=== PATIENT | male | born 1950 | race Caucasian/White ===

== ENCOUNTER 2020-01-03 10:24 | Inpatient (IN) | payer MEDICARE ==
[2020-01-03 15:00] VITALS: BP 141/84
[2020-01-03] MEDS ORDERED: MIRALAX *UNIT DOSE* 17GM PACKET PO PRN (15:15)
[2020-01-03] MEDS ORDERED: ACETAMINOPHEN TAB 650MG DOSE (2X325MG) PO PRN (15:15)
[2020-01-03] MEDS ORDERED: FLUO10CA16 PO (16:25)
[2020-01-03] MEDS ORDERED: METO1TAB87 PO (16:25)
[2020-01-03] MEDS ORDERED: DOXA1TAB42 PO (16:25)
[2020-01-03] MEDS ORDERED: ATOR80TA59 PO (16:25)
[2020-01-03] MEDS ORDERED: MELA5CAP2 PO (16:25)
[2020-01-03] MEDS ORDERED: PANT40TA29 PO (16:25)
[2020-01-03] MEDS ORDERED: ELIQ5TAB PO (16:25)
[2020-01-03] MEDS ORDERED: AMLO1TAB24 PO (16:25)
[2020-01-03] MEDS ORDERED: LIDO1PAD TOP (16:25)
[2020-01-03] MEDS ORDERED: ASPI81CH33 PO (16:25)
--- NOTE | 2020-01-03 17:42 | HPEPDOC ---
Alteration Specialist Note DATE OF ADMISSION: 01.03.2020 DATE OF SERVICE: 01.03.2020 TIME OF ADMISSION: Please refer to physician's admission order. SOURCE OF ADMISSION INFORMATION: Patient, medical record ADMITTING DIAGNOSES: CVA HTN Afib Myofascial pain left shoulder girdle Dysarthria Dysphagia CHIEF COMPLAINT: Left lachelle-plegia. Left shoulder pain Emotional lability . HISTORY OF PRESENT ILLNESS: This is a 69-year-old hypertensive gentleman with history of atrial fibrillation was treated on Xarelto and had prior TIAs who presented to the hospital with an acute right-sided ischemic stroke 12/29/2019. Workup including carotid duplex to Mr. to complete occlusion of the right internal carotid artery and left febrile arteries. The patient had new interval strokes on repeat MRI involving the right centrum semiovale, frontal lobe and to a lesser extent parietal lobe as well as initial foci of acute infarcts in the right frontoparietal medial temporal occipital lobes. Basal ganglia and deep white matter, he was not felt to be a surgical candidate. Patient had a PICC line placed for venous access. Presentation. Apparently fluctuating progression in functional abilities as there were extension of the strokes, stable on transfer. REVIEW OF SYSTEMS: The following is a completed review of systems and has been reviewed. Review of systems otherwise unremarkable. PAIN: Patient self reports no pain. EYES: No recent vision changes. EARS, NOSE, & THROAT: No throat pain, or dysphagia, or rhinorrhea. CARDIOVASCULAR: Denies chest pain or palpitations. PULMONARY: Denies shortness of breath. GASTROINTESTINAL: Denies constipation/diarrhea. GENITOURINARY: BPH MUSCULOSKELETAL: History prior cervical spine surgery, stable NEUROLOGICAL:. Current L lachelle HEMATOLOGICAL: negative . SKIN: negative PSYCHIATRIC: Unremarkable. Notes insomnia can be a challenge All other review of systems found to be negative. PAST MEDICAL HISTORY: HTN Afib PAST SURGICAL HISTORY: C Spine surgery Tonsillectomy Eye surgery ALLERGIES: Please see below. MEDICATIONS: Please see below. FAMILY HISTORY: Reported Mother 57 w hx COPD, Father 76 with hx DM and Melanoma . SOCIAL HISTORY: Former Smoker (quit 1983), 30 beers/week EtOH, lives in a 2 step [address] [place] [address]. DIET: Regular. PHYSICAL EXAMINATION: VITAL SIGNS: Please see below. GENERAL: Patient is pleasant and cooperative with exam, interspersed with episodic crying jags and emotional incontinence, Dysarthric speech noted.. HEENT: Obvious left facial droop extraocular movements intact. Clear conjunctiva, no adenopathy or thyromegaly. Full cervical range of motion without tenderness or spasm. Tongue hyperemic, midline, symmetric elevation of palate. CARDIOVASCULAR: S2 S2 RRR LUNGS: Clear to auscultation bilaterally. No wheezes. No rhonchi. ABDOMEN: Soft, nontender, nondistended. Positive bowel sounds. Normal active bowel sounds, no organomegaly. NEUROLOGICAL: Alert and oriented times three. Cranial nerves II through XII noted for L facial droop, decreased eye closure. 4 Extremity Sensation grossly intact. Reflexes 3 + L, 2+ right bilateral biceps, triceps, brachial radialis, patellar, Achilles tendon jerks. No clonus. Increased tone 3/5 left upper and lower extremity, able to forward flex to 70 degrees with spastic posturing during MM testing, FROM RUE. FABERE neg bilat hips, SLR 70. EXTREMITIES Generalized Tenderness about lateral deltoid region left shoulder girdle, no point tenderness biceps, supraspinatus or AC joint. 5 /5 right electronics computer mechanic, elbow flexion, elbow extension, knee extension, foot dorsiflexion, plantar flexion. 2/5 L electronics computer mechanic, biceps, triceps, 3-/5 quads, tibialis anterior. SKIN: Intact, healing PICC site right inner arm. . LABORATORY DATA: Please see below. IMAGIN12/29/2019 CT angiography of neck acute infarct right flores radiata, occluded extracranial right ICA at the origin, occluded left vertebral artery C2-3 with approximately 50% diameter stenosis mid basilar artery. 12/27/2019. MRI brain, multiple small punctate foci of acute infarcts, right frontal parietal and occipital lobes and deep white matter. Many in watershed zones . Normal flow void not identified in the intracranial right ICA, with concern for possible occlusion thrombus FUNCTIONAL STATUS: Premorbid: Independent with all activities of daily life as well as mobility without an assistive device. On Admission: Total assistance for lower body dressing, shower transfers, stairs. Supine to sit with minimal assistance, sit to stand with contact-guard assistance, minimal assistance with gait 70 feet using rolling walker. Fair minus dynamic balance with rolling walker. Maximum assistance for bathing, upper body dressing, bed chair and wheelchair transfers, toilet transfers, ambulation. States continent of bowel and bladder. GOALS: Regain highest level of functional capacity in communication, mobility, self care skills ASSESSMENT: This is a 69-year-old hypertensive gentleman with history of atrial fibrillation was treated on Xarelto and had prior TIAs who presented to the hospital with an acute right-sided ischemic stroke 12/29/2019 which progressed and he has dense left hemiplegia, arm worst than leg with some dysarthria, pos sible dysphagia and emotional incontinence issues. PLAN: 1. .CVA-Comprehensive PT/OT/FINANCIAL SERVICES AGENT/Rehabilitation nursing, active ROM, stretching, progressive strengthening, mobility gait and ADLs training, bowel and bladder management protocols. 2. .HTN/HLD-monitor BP, optimize medications, provide dietary education and family instruction 3. .History # Beers-education, no S/S W/D, monitor and provide appropriate medications to optimize emotional status. Pharmacy indicates ambien had been DCd. Will offer Trazodone for HS sleep aid and to treat associated anxiety/grief reaction over significant loss of function. 3. .Afib-sounds currently in rhythm, will monitor and request hospitalist consult to assist in adjusting medications as indicated, Pharm rec notes pre-DC shift from Xarelto to Eliquis, will continue and monitor. 4. GI on PPI, Dietary education and low salt, low fat pureed diet, progress as per FINANCIAL SERVICES AGENT sierra. May need swallowing study. 4. .Eventual DC home to of 45 years and family. POST ADMISSION PHYSICIAN EVALUATION: Medical and functional status: Description of medical status, medical assessment: As above. Rehabilitation diagnosis and current and prior co- morbid medical conditions as above. Risk of complications and plans to mitigate them as above. Description of functional status current status is as above. Prior status as above. Status compared to preadmission: There are no clinically significant differences between the patient's current status and the information described on the preadmission screening document. Treatment plan anticipated: Treatment plan is as described above. Required disciplines including physical therapy, occupational therapy, others as noted above. Intensity of services: 3 hours a day, 6-7 days a week. Special considerations: There are no specific special or safety considerations that would likely preclude immediate implementation of an intensive rehabilit ation program or subsequently influence the plan of care. ATTESTATION: Considering all the information above, it is my best judgment that this patient requires intensive rehabilitation therapy as described above and an inpatient hospital environment due to the complexity of nursing, medical, and rehabilitation needs required by the patient. Furthermore, this patient can reasonably be expected to participate in an benefit from an inpatient rehabilitation stay with an interdisciplinary team approach to the delivery of rehabilitation care under the direction and supervision of rehabilitation physician. PROGNOSIS: Excellent. ESTIMATED LENGTH OF STAY:10-14 days. PROJECTED DISCHARGE DESTINATION: Home with family support and any durable medical equipment required to increase functional safety and mobility. TIME SPENT COUNSELING AND COORDINATING INITIAL CARE: Greater than 60 minutes. Vital Signs Vital Sign - Last 24 Hours 01/03/20 15:00 Temp 97.1 Pulse 89 Resp 18 B/P (MAP) 141/84 (103) Pulse Ox 98 O2 Delivery Room Air Home Medications Scheduled Amlodipine Besylate (Amlodipine Besylate) 5 Mg Tablet, 5 MG PO DAILY, (Reported) Apixaban (Eliquis) 5 Mg Tablet, 5 MG PO BID, (Reported) Aspirin (Aspirin) 81 Mg Tab.chew, 81 MG PO DAILY, (Reported) Atorvastatin Calcium (Atorvastatin Calcium) 80 Mg Tablet, 80 MG PO QHS, (Reported) Doxazosin Mesylate (Doxazosin Mesylate) 1 Mg Tablet, 1 MG PO DAILY, (Reported) Fluoxetine Hcl (Fluoxetine HCl) 10 Mg Capsule, 10 MG PO DAILY, (Reported) Lidocaine (Lidocaine) 5% Adh..patch, 1 PATCH TOP DAILY, (Reported) APPLIED TO LEFT SHOULDER Melatonin (Melatonin) 5 Mg Capsule, 5 MG PO QHS, (Reported) Metoprolol Tartrate (Metoprolol Tartrate) 25 Mg Tablet, 12.5 MG PO BID, (Reported) Pantoprazole Sodium (Pantoprazole Sodium) 40 Mg Tablet.dr, 40 MG PO DAILY, (Reported) Allergies Coded Allergies: oxycodone (Verified Allergy, Unknown, 01/03/20) medical record A-FIB/CHADSVASC A-FIB History Current/History of A-Fib/PAF?: Yes Current PO Anticoag Therapy: Yes Age/Risk Factor Scoring CHADSVASC: CHADSVASC Response (Comments) Value Age Risk Factor Age 65-74 years old 1 Hx of CHF No 0 Hx of Diabetes No 0 Total 1 NATHALY SALVADOR MD Jan 03, 2020 17:42
[2020-01-03 20:00] VITALS: BP 146/88
[2020-01-03] MEDS ORDERED: zolPIDEM TARTRATE 5 MG TAB PO SCH (21:00)
[2020-01-03] MEDS: APIXABAN 5 MG TAB (ELIQUIS) PO SCH (21:14)
[2020-01-03] MEDS: METOPROLOL TART 12.5 MG PER 1/2 TAB PO SCH (21:14)
[2020-01-03] MEDS: DOCUSATE SODIUM 100 MG CAP PO SCH (21:14)
[2020-01-03] MEDS: ATORVASTATIN 20 MG TAB PO SCH (21:14)
[2020-01-03] MEDS: traZODone 25MG PER 1/2 TABLET PO SCH (21:14)
[2020-01-04 06:00] VITALS: BP 126/79
[2020-01-04 06:04] LABS: BASO # 0.1 10^3/uL (0.0-0.2); BASO % 0.9 % (0.0-1.0); EOS # 0.1 10^3/uL (0.0-0.5); HEMATOCRIT 47.4 % (42.0-52.0); HEMOGLOBIN 15.6 g/dl (13.5-17.5); LYMPH # 1.2 10^3/uL (1.5-5.0); LYMPH % 18.3 % (24.0-44.0); MEAN CORPUSCULAR HEMOGLOBIN 29.2 pg (27.0-33.0); MEAN CORPUSCULAR HGB CONC 32.9 g/dl (32.0-36.5); MEAN CORPUSCULAR VOLUME 88.8 fl (80.0-96.0); MONO # 0.8 10^3/uL (0.0-0.8); MONO % 12.7 % (0.0-5.0); NEUTROPHILS # 4.3 10^3/uL (1.5-8.5); NEUTROPHILS % 65.5 % (36.0-66.0); PLATELET COUNT, AUTOMATED 155 10^3/uL (150-450); RED BLOOD COUNT 5.34 10^6/uL (4.30-6.10); WHITE BLOOD COUNT 6.6 10^3/uL (4.0-10.0)
[2020-01-04 06:53] LABS: APPEARANCE, URINE HAZY (CLEAR); BACTERIA, URINE AUTO NEGATIVE (NEGATIVE); BILIRUBIN, URINE AUTO NEGATIVE (NEGATIVE); BLOOD, URINE BLOOD 1+ (NEGATIVE); COLOR, URINE YELLOW (YELLOW); GLUCOSE, URINE (UA) AUTO NEGATIVE (NEGATIVE); KETONE, URINE AUTO NEGATIVE (NEGATIVE); LEUKOCYTE ESTERASE, URINE AUTO NEGATIVE (NEGATIVE); MUCUS, URINE SMALL (NEGATIVE); NITRITE, URINE AUTO NEGATIVE (NEGATIVE); PROTEIN, URINE AUTO NEGATIVE (NEGATIVE); RBC, URINE AUTO 9 /HPF (0-3); SPECIFIC GRAVITY URINE AUTO 1.031 (1.002-1.035); SQUAMOUS EPITHELIAL CELL UR AU 0 /HPF (0-6); WBC, URINE AUTO 2 /HPF (0-3)
--- NOTE | 2020-01-04 08:18 | IPNPDOC ---
PM&R Progress Note DATE OF SERVICE: Jan 04, 2020 Home Advisor Progress Note DATE OF ADMISSION: Jan 03, 2020 at 14:37 INPATIENT REHABILITATION ADMISSION DAY: #1 SUBJECTIVE: This is a 69-year-old hypertensive gentleman with history of atrial fibrillation was treated on Xarelto and had prior TIAs who presented to the hospital with an acute right-sided ischemic stroke 12/29/2019. Workup including carotid duplex to Mr. to complete occlusion of the right internal carotid artery and left febrile arteries. The patient had new interval strokes on repeat MRI involving the right centrum semiovale, frontal lobe and to a lesser extent parietal lobe as well as initial foci of acute infarcts in the right frontoparietal medial temporal occipital lobes. Basal ganglia and deep white matter, he was not felt to be a surgical candidate. Patient had a PICC line placed for venous access. Presentation. Apparently fluctuating progression in functional abilities as there were extension of the strokes, stable on transfer. He slept well overnight, no new complaints, ready to begin the program. REVIEW OF SYSTEMS: The following is a completed review of systems and has been reviewed. Review of systems otherwise unremarkable. PAIN: Patient self reports no pain. EYES: No recent vision changes. EARS, NOSE, & THROAT: No throat pain, or dysphagia, or rhinorrhea. CARDIOVASCULAR: Denies chest pain or palpitations. PULMONARY: Denies shortness of breath. GASTROINTESTINAL: Denies constipation/diarrhea. GENITOURINARY: BPH MUSCULOSKELETAL: History prior cervical spine surgery, stable NEUROLOGICAL:. Current L lachelle HEMATOLOGICAL: negative . SKIN: negative PSYCHIATRIC: Unremarkable. Notes insomnia can be a challenge All other review of systems found to be negative. ALLERGIES: See Below MEDICATIONS: Reviewed, see below. OBJECTIVE: VITAL SIGNS: Please see below. PHYSICAL EXAMINATION: GENERAL: Patient is pleasant and cooperative with exam, interspersed with episodic crying jags and emotional incontinence.. HEENT: Obvious left Ptosis, left facial droop, extraocular movements intact. Clear conjunctiva, no adenopathy or thyromegaly. Full cervical range of motion without tenderness or spasm. Tongue hyperemic, midline CARDIOVASCULAR: Regular sinus rhythm. No murmurs, rubs, or gallops. LUNGS: Clear to auscultation bilaterally. No wheezes. No rhonchi. ABDOMEN: Soft, nontender, nondistended. Positive bowel sounds. Normal active bowel sounds, no organomegaly. NEUROLOGICAL: Alert and oriented times three. Cranial nerves II through XII n oted for L facial droop, decreased volitional eye closure and opening , ptosis. 4 Extremity Sensation grossly intact. Reflexes 3 + L, 2+ right bilateral biceps, triceps, brachial radialis, patellar, Achilles tendon jerks. No clonus. Increased tone left upper and lower extremity, but some softening compared to admission exam. continues with spastic posturing during MM testing. EXTREMITIES Generalized Tenderness about lateral deltoid region left shoulder girdle, no point tenderness biceps, supraspinatus or AC joint. 5 /5 right housekeeping supervisor, elbow flexion, elbow extension, knee extension, foot dorsiflex ion, plantar flexion. 2/5 L housekeeping supervisor, biceps, triceps, 3-/5 quads, tibialis anterior. SKIN: Intact, healing PICC site right inner arm. . FUNCTIONAL STATUS: Premorbid: Independent with all activities of daily life as well as mobility without an assistive device. Total assistance for lower body dressing, shower transfers, stairs. Supine to sit with minimal assistance, sit to stand with contact-guard assistance, minimal assistance with gait 70 feet using rolling walker. Fair minus dynamic balance with rolling walker. States continent of bowel and bladder. GOALS: Regain highest level of functional capacity in communication, mobility, self care skills LABORATORY DATA: Reviewed.H/H, UA stable Please see below. IMAGIN12/29/2019 CT angiography of neck acute infarct right flores radiata, occluded extracranial right ICA at the origin, occluded left vertebral artery C2-3 with approximately 50% diameter stenosis mid basilar artery. 12/27/2019. MRI brain, multiple small punctate foci of acute infarcts, right frontal parietal and occipital lobes and deep white matter. Many in watershed zones . Normal flow void not identified in the intracranial right ICA, with concern for possible occlusion thrombus ASSESSMENT: This is a 69-year-old hypertensive gentleman with history of atrial fibrillation was treated on Xarelto and had prior TIAs who presented to the hospital with an acute right-sided ischemic stroke 12/29/2019 which progressed and he has dense left hemiplegia, arm worst than leg with some dysarthria, possible dysphagia and emotional incontinence issues. PLAN: 1. .CVA-Comprehensive PT/OT/SHIP PURSER/Rehabilitation nursing, active ROM, stretching, progressive strengthening, mobility gait and ADLs training, bowel and bladder management protocols. 2. .HTN/HLD-monitor BP, optimize medications, provide dietary education and family instruction 3. .History # Beers baseline-education, no S/S W/D, monitor and provide appropriate medications to optimize emotional status. Pharmacy indicates ambien had been DCd. offered Trazodone for HS sleep aid and to treat associated anxiety/grief reaction over significant loss of function, seemed to have tolerated well. 3. .Afib-sounds currently in rhythm, will monitor and request hospitalist consult to assist in adjusting medications as indicated, [facility], will continue and monitor. 4. GI on PPI, Dietary education and low salt, low fat pureed diet, progress as per SHIP PURSER sierra. May need swallowing study. 5. MSK-had lidoderm patch left shoulder, may consider change to Flector patch, or addition of topical Biofreeze. 6. .Eventual DC home to of 45 years and family. TIME SPENT: Chart Review, examination and documentation [30] minutes. Allergies Coded Allergies: oxycodone (Verified Allergy, Unknown, 01/03/20) medical record Vital Signs Vital Signs Date Time Temp Pulse Resp B/P (MAP) Pulse Ox O2 Delivery O2 Flow Rate FiO2 01/04/20 06:00 96.7 68 18 126/79 (95) 97 Room Air Laboratory Data CBC/BMP Laboratory Tests 01/04/20 05:34 Labs 24H Laboratory Tests 2 01/04/20 05:34: Immature Granulocyte % (Auto) 0.6, Neutrophils (%) (Auto) 65.5, Lymphocytes (%) (Auto) 18.3L, Monocytes (%) (Auto) 12.7H, Eosinophils (%) (Auto) 2.0, Basophils (%) (Auto) 0.9, Neutrophils # (Auto) 4.3, Lymphocytes # (Auto) 1.2L, Monocytes # (Auto) 0.8, Eosinophils # (Auto) 0.1, Basophils # (Auto) 0.1, Nucleated Red Blood Cells % (auto) 0.0 01/04/20 06:39: Urine Color YELLOW, Urine Appearance HAZY, Urine pH 5.0, Urine Specific [place] 1.031, Urine Protein NEGATIVE, Urine Glucose (Auto)(UA) NEGATIVE, Urine Ketones (Auto) NEGATIVE, Urine Blood 1+H, Urine Nitrite NEGATIVE, Urine Bilirubin NEGATIVE, Urine Urobilinogen 2.0H, Urine Leukocyte Esterase (Auto) NEGATIVE, Urine WBC (Auto) 2, Urine RBC (Auto) 9H, Urine Hyaline Casts (Auto) 0, Urine Bacteria (Auto) NEGATIVE, Urine Squamous Epithelial Cells 0, Urine Mucus (Auto) SMALL, Urine Sperm (Auto) Current Medications Current Medications Current Medications Medications (Trade) Dose Ordered Sig/Chano Route PRN Reason Start Time Stop Time Status Last Admin Dose Admin Acetaminophen (Tylenol Tab) 650 mg Q4HP PRN PO MILD PAIN (PS 1-4) 01/03/20 15:15 Amlodipine Besylate (Norvasc) 5 mg DAILY PO 01/04/20 09:00 Apixaban (Eliquis) 5 mg BID PO 01/03/20 21:00 01/03/20 21:14 Atorvastatin Calcium (Lipitor) 80 mg QHS PO 01/03/20 21:00 01/03/20 21:14 Docusate Sodium (Colace) 100 mg BID PO 01/03/20 21:00 01/03/20 21:14 Home Med (Med Rec Complete!) ASDIRECTED XX 01/03/20 16:30 01/03/20 16:44 DC Metoprolol Succinate (TopROL XL) 50 mg DAILY PO 01/04/20 09:00 01/03/20 17:11 DC Metoprolol Tartrate (Lopressor) 12.5 mg BID PO 01/03/20 21:00 01/03/20 21:14 Pantoprazole Sodium (Protonix) 40 mg DAILY PO 01/04/20 09:00 Polyethylene Glycol (Miralax) 1 pkt DAILY PRN PO CONSTIPATION 01/03/20 15:15 Rivaroxaban (Xarelto) 20 mg DAILY PO 01/04/20 09:00 01/03/20 17:10 DC Tamsulosin HCl (Flomax) 0.4 mg DAILY PO 01/04/20 09:00 01/03/20 17:10 DC Trazodone HCl (Desyrel) 25 mg QHS PO 01/03/20 21:00 01/03/20 21:14 Zolpidem Tartrate (Ambien) 10 mg QHS PO 01/03/20 21:00 01/03/20 17:10 NATHALY STEWARD MD Jan 04, 2020 08:18
[2020-01-04] MEDS: amLODIPine 5 MG TAB PO SCH (08:24)
[2020-01-04] MEDS: DOCUSATE SODIUM 100 MG CAP PO SCH ×2 (08:24→21:12)
[2020-01-04] MEDS: APIXABAN 5 MG TAB (ELIQUIS) PO SCH ×2 (08:24→21:12)
[2020-01-04] MEDS: METOPROLOL TART 12.5 MG PER 1/2 TAB PO SCH ×2 (08:24→21:11)
[2020-01-04] MEDS: PANTOPRAZOLE 40MG TAB (PROTONIX) PO SCH (08:24)
[2020-01-04] MEDS ORDERED: FLUBLOK(EGG FREE)(QUAD)INFLUENZA VACC 0.5ML SYRINGE 18YRS & OLDER IM ONE (09:00)
[2020-01-04] MEDS ORDERED: TAMSULOSIN 0.4 MG CAP PO SCH (09:00)
[2020-01-04] MEDS ORDERED: METOPROLOL SUCC (TopROL XL) 50MG **XL** TAB PO SCH (09:00)
[2020-01-04] MEDS ORDERED: RIVAROXABAN 20 MG TAB (XARELTO) PO SCH (09:00)
--- NOTE | 2020-01-04 13:26 | CR.PDOC ---
General Date of Consultation: Jan 04, 2020 Consultation REASON FOR CONSULTATION/CHIEF COMPLAINT: Management of medical Comorbidities HISTORY OF PRESENT ILLNESS: 69 year old male with PMH of Afib, Hypertension, TIAs, BPH, Cervical Spine surgery had a recent stroke in the MCA territory With Acute infarct Right flores radiata on 12/29/19 with residual left hemiplegia with dysphagia and dysarthria and emotional lability managed at [facility] and transferred to our ARU for continuing rehab. During his stay at [facility] he was found to have complete occlusion of right internal carotid artery and left vertebral artery. He had also had interval strokes during his stay there after the initial stroke at presentation. Today he denies any pain, denies any headache, light headedness or dizziness, No nausea or vomiting or diarrhea, No chest pain or SOB or cough or palpitation. Denies any difficulty in vision. Does complain of insomnia. PAST MEDICAL HISTORY: HTN Afib TIAS BPH PAST SURGICAL HISTORY: C Spine surgery Tonsillectomy Eye surgery ALLERGIES: Please see below. MEDICATIONS: Please see below. FAMILY HISTORY: Reported Mother 57 w hx COPD, Father 76 with hx DM and Melanoma . SOCIAL HISTORY: Former Smoker (quit 1983), 30 beers/week EtOH ROS: All 11 point review of systems are negative except those in HPI. PHYSICAL EXAMINATION: VITAL SIGNS: Please see below. GENERAL: Patient is pleasant and cooperative with exam, dysarthric speech, soft voice. HEENT: Obvious left facial droop extraocular movements intact. Moist mucous membranes, anicteric eyes, CARDIOVASCULAR: S2 S2 RRR, No rub or murmur or gallop LUNGS: Clear to auscultation bilaterally. No wheezes. No rhonchi or crackles. ABDOMEN: Soft, nontender, nondistended. Positive bowel sounds. Normal active bowel sounds, no organomegaly. NEUROLOGICAL: Alert and oriented times three. Cranial nerves II through XII noted for L facial droop, decreased eye closure. 4 Extremity Sensation grossly intact. Left hemiparesis. EXTREMITIES Generalized Tenderness about lateral deltoid region left shoulder, No edema or cyanosis or clubbing. LABORATORY DATA: Please see below. IMAGIN12/29/2019 CT angiography of neck acute infarct right flores radiata, occluded extracranial right ICA at the origin, occluded left vertebral artery C2-3 with approximately 50% diameter stenosis mid basilar artery. 12/27/2019. MRI brain, multiple small punctate foci of acute infarcts, right frontal parietal and occipital lobes and deep white matter. Many in watershed zones. Normal flow void not identified in the intracranial right ICA, with concern for possible occlusion thrombus ASSESSMENT and Plan: This is a 69-year-old hypertensive gentleman with history of atrial fibrillation was treated on Xarelto and had prior TIAs , hypertension, BPH who presented to [facility] with an acute right-sided ischemic stroke 12/29/2019 which progressed and he developed dense left hemiplegia, arm worse than leg with some dysarthria, possible dysphagia and emotional incontinence issues. Acute ischemic CVA with left hemiparesis, dysarthria and possible dysphagia on eliquis and statin Swallow eval as per ARU. HTN controlled On amlodipine and metoprolol. Paroxysmal Afib Now in sinus on Eliquis HLD on statin. Insomnia on trazodone Anxiety and Grief reaction due to severe loss of function as per ARU GI on PPI Vital Signs/I&O Vital Signs Date Time Temp Pulse Resp B/P (MAP) Pulse Ox O2 Delivery O2 Flow Rate FiO2 01/04/20 08:24 68 126/79 01/04/20 06:00 96.7 18 97 Room Air I&O- Last 24 Hours up to 6 AM 01/04/20 06:00 Intake Total 200 ml Balance 200 ml Laboratory Data Labs 24H Laboratory Tests 2 01/04/20 05:34: Immature Granulocyte % (Auto) 0.6, Neutrophils (%) (Auto) 65.5, Lymphocytes (%) (Auto) 18.3L, Monocytes (%) (Auto) 12.7H, Eosinophils (%) (Auto) 2.0, Basophils (%) (Auto) 0.9, Neutrophils # (Auto) 4.3, Lymphocytes # (Auto) 1.2L, Monocytes # (Auto) 0.8, Eosinophils # (Auto) 0.1, Basophils # (Auto) 0.1, Nucleated Red Blood Cells % (auto) 0.0 01/04/20 06:39: Urine Color YELLOW, Urine Appearance HAZY, Urine pH 5.0, Urine Specific [place] 1.031, Urine Protein NEGATIVE, Urine Glucose (Auto)(UA) NEGATIVE, Urine Ketones (Auto) NEGATIVE, Urine Blood 1+H, Urine Nitrite NEGATIVE, Urine Bilirubin NEGATIVE, Urine Urobilinogen 2.0H, Urine Leukocyte Esterase (Auto) NEGATIVE, Urine WBC (Auto) 2, Urine RBC (Auto) 9H, Urine Hyaline Casts (Auto) 0, Urine Bacteria (Auto) NEGATIVE, Urine Squamous Epithelial Cells 0, Urine Mucus (Auto) SMALL, Urine Sperm (Auto) CBC/BMP Laboratory Tests 01/04/20 05:34 Allergies Coded Allergies: oxycodone (Verified Allergy, Unknown, 01/03/20) medical record Home Medications Scheduled Amlodipine Besylate (Amlodipine Besylate) 5 Mg Tablet, 5 MG PO DAILY, (Reported) Apixaban (Eliquis) 5 Mg Tablet, 5 MG PO BID, (Reported) Aspirin (Aspirin) 81 Mg Tab.chew, 81 MG PO DAILY, (Reported) Atorvastatin Calcium (Atorvastatin Calcium) 80 Mg Tablet, 80 MG PO QHS, (Reported) Doxazosin Mesylate (Doxazosin Mesylate) 1 Mg Tablet, 1 MG PO DAILY, (Reported) Fluoxetine Hcl (Fluoxetine HCl) 10 Mg Capsule, 10 MG PO DAILY, (Reported) Lidocaine (Lidocaine) 5% Adh..patch, 1 PATCH TOP DAILY, (Reported) APPLIED TO LEFT SHOULDER Melatonin (Melatonin) 5 Mg Capsule, 5 MG PO QHS, (Reported) Metoprolol Tartrate (Metoprolol Tartrate) 25 Mg Tablet, 12.5 MG PO BID, (Reported) Pantoprazole Sodium (Pantoprazole Sodium) 40 Mg Tablet.dr, 40 MG PO DAILY, (Reported) RIP THOMPSON MD Jan 04, 2020 12:02
[2020-01-04 14:00] VITALS: BP 140/72
[2020-01-04 19:59] VITALS: BP 146/88
[2020-01-04] MEDS: ATORVASTATIN 20 MG TAB PO SCH (21:11)
[2020-01-04] MEDS: traZODone 25MG PER 1/2 TABLET PO SCH (21:12)
[2020-01-05 05:29] VITALS: BP 159/85
[2020-01-05] MEDS: amLODIPine 5 MG TAB PO SCH (08:37)
[2020-01-05] MEDS: APIXABAN 5 MG TAB (ELIQUIS) PO SCH ×2 (08:37→21:21)
[2020-01-05] MEDS: DOCUSATE SODIUM 100 MG CAP PO SCH ×2 (08:37→21:21)
[2020-01-05] MEDS: PANTOPRAZOLE 40MG TAB (PROTONIX) PO SCH (08:37)
[2020-01-05] MEDS: METOPROLOL TART 12.5 MG PER 1/2 TAB PO SCH (08:38)
--- NOTE | 2020-01-05 08:52 | IPNPDOC ---
PM&R Progress Note DATE OF SERVICE: Jan 05, 2020 Fire Patroller Progress Note DATE OF ADMISSION: Jan 03, 2020 at 14:37 INPATIENT REHABILITATION ADMISSION DAY: #2 SUBJECTIVE: This is a 69-year-old hypertensive gentleman with history of atrial fibrillation was treated on Xarelto and had prior TIAs who presented to the hospital with an acute right-sided ischemic stroke 12/29/2019. 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 The patient had new interval strokes on repeat MRI involving the right centrum semiovale, frontal lobe and to a lesser extent parietal lobe as well as initial foci of acute infarcts in the right frontoparietal, medial,temporal and occipital lobes, basal ganglia and deep white matter, he was not felt to be a surgical candidate. Patient had a PICC line placed for venous access. Apparently fluctuating progression in functional abilities as there was extension of the strokes, however stable on transfer. He slept well overnight, no new complaints, participating well with the program, remains emotionally labile with frequent tearful crying jags. REVIEW OF SYSTEMS: The following is a completed review of systems and has been reviewed. Review of systems otherwise unremarkable. PAIN: Patient self reports no pain. EYES: No recent vision changes. EARS, NOSE, & THROAT: No throat pain, or dysphagia, or rhinorrhea. CARDIOVASCULAR: Denies chest pain or palpitations. PULMONARY: Denies shortness of breath. GASTROINTESTINAL: Denies constipation/diarrhea. GENITOURINARY: BPH MUSCULOSKELETAL: History prior cervical spine surgery, stable NEUROLOGICAL:. Current L lachelle HEMATOLOGICAL: negative . SKIN: negative PSYCHIATRIC: Unremarkable. Notes insomnia can be a challenge All other review of systems found to be negative. ALLERGIES: See Below MEDICATIONS: Reviewed, see below. OBJECTIVE: VITAL SIGNS: Please see below. PHYSICAL EXAMINATION: GENERAL: Patient is pleasant and cooperative with exam, interspersed with episodic crying jags and emotional incontinence.. HEENT: Less obvious left Ptosis, left facial droop, extraocular movements intact. Clear conjunctiva, no adenopathy or thyromegaly. CARDIOVASCULAR: Regular sinus rhythm. No murmurs, rubs, or gallops. LUNGS: Clear to auscultation bilaterally. No wheezes. No rhonchi. ABDOMEN: Soft, nontender, nondistended. Positive bowel sounds. Normal active bowel sounds, no organomegaly. NEUROLOGICAL: Alert and oriented times three. Cranial nerves II through XII noted for L facial droop, decreased volitional eye closure and opening , ptosis. 4 Extremity Sensation grossly intact. Increased tone left upper and lower extremity, but some softening compared to admission exam. Less spastic posturing during MM testing. Able to elevate left upper extremity to 120 degrees, touch nose, tone diminished 2/5, strength increasing 3-/5. EXTREMITIES Generalized Tenderness about lateral deltoid region left shoulder girdle, no point tenderness biceps or AC joint. 5 /5 right accounts receivable specialist, elbow flexion, elbow extension, knee extension, foot dorsiflexion, plantar flexion. 4/5 left quads, tibialis anterior. SKIN: Intact, healing PICC site right inner arm. . FUNCTIONAL STATUS: Premorbid: Independent with all activities of daily life as well as mobility without an assistive device. Making rapid progress, now from WBQC to NBQC ambulation 100' CGA, min A without AD, but unsteady without. Pt fatigues easily. Continent of bowel and bladder. GOALS: Regain highest level of functional capacity in communication, mobility, self care skills LABORATORY DATA: Reviewed.H/H, UA stable Please see below. IMAGIN12/29/2019 CT angiography of neck acute infarct right flores radiata, occluded extracranial right ICA at the origin, occluded left vertebral artery C2-3 with approximately 50% diameter stenosis mid basilar artery. 12/27/2019. MRI brain, multiple small punctate foci of acute infarcts, right fro ntal parietal and occipital lobes and deep white matter. Many in watershed zones . Normal flow void not identified in the intracranial right ICA, with concern for possible occlusion thrombus ASSESSMENT: This is a 69-year-old hypertensive gentleman with history of atrial fibrillation was treated on Xarelto and had prior TIAs who presented to the hospital with an acute right-sided ischemic stroke 12/29/2019 which progressed and he has dense left hemiplegia, arm worst than leg with some dysarthria, possible dysphagia and emotional incontinence issues. PLAN: 1. .CVA-Comprehensive PT/OT/FACE HARDENER/Rehabilitation nursing, active ROM, stretching, progressive strengthening, mobility gait and ADLs training, bowel and bladder management protocols. 2. .HTN/HLD-monitor BP, trending a bit high 150s, may reflect increased exertion, emotional distress. Will optimize medications, increase Metoprolol to 50mg, and monitor, provide dietary education and family instruction 3. .History # Beers baseline-education, no S/S W/D, monitor and provide appropriate medications to optimize emotional status. Pharmacy indicates ambien had been DCd. offered Trazodone for HS sleep aid and to treat associated anxiety/grief reaction over significant loss of function, seemed to have tolerated well. 3. .Afib-sounds currently in rhythm, will monitor and request hospitalist consult to assist in adjusting medications as indicated, Pharm rec notes pre-DC shift from Xarelto to Eliquis, will continue and monitor. 4. GI on PPI, Dietary education and low salt, low fat pureed diet, progress as per FACE HARDENER eval. May need swallowing study. 5. MSK-had lidoderm patch left shoulder, may consider change to Flector patch, or addition of topical Biofreeze. Improving with increased volitional movement, less tone. 6. Psych-still significant emotional distress and lability, continue counselling, adjustment of medications 7. Disp-eventual DC home to . TIME SPENT: Chart Review, examination and documentation [30] minutes. Allergies Coded Allergies: oxycodone (Verified Allergy, Unknown, 01/03/20) medical record Vital Signs Vital Signs Date Time Temp Pulse Resp B/P (MAP) Pulse Ox O2 Delivery O2 Flow Rate FiO2 01/05/20 08:38 61 159/85 01/05/20 05:29 97.6 18 97 Room Air Current Medications Current Medications Current Medications Medications (Trade) Dose Ordered Sig/Chano Route PRN Reason Start Time Stop Time Status Last Admin Dose Admin Acetaminophen (Tylenol Tab) 650 mg Q4HP PRN PO MILD PAIN (PS 1-4) 01/03/20 15:15 Amlodipine Besylate (Norvasc) 5 mg DAILY PO 01/04/20 09:00 01/05/20 08:37 Apixaban (Eliquis) 5 mg BID PO 01/03/20 21:00 01/05/20 08:37 Atorvastatin Calcium (Lipitor) 80 mg QHS PO 01/03/20 21:00 01/04/20 21:11 Docusate Sodium (Colace) 100 mg BID PO 01/03/20 21:00 01/05/20 08:37 Home Med (Med Rec Complete!) ASDIRECTED XX 01/03/20 16:30 01/03/20 16:44 DC Metoprolol Succinate (TopROL XL) 50 mg DAILY PO 01/04/20 09:00 01/03/20 17:11 DC Metoprolol Tartrate (Lopressor) 12.5 mg BID PO 01/03/20 21:00 01/05/20 08:38 Pantoprazole Sodium (Protonix) 40 mg DAILY PO 01/04/20 09:00 01/05/20 08:37 Polyethylene Glycol (Miralax) 1 pkt DAILY PRN PO CONSTIPATION 01/03/20 15:15 Rivaroxaban (Xarelto) 20 mg DAILY PO 01/04/20 09:00 01/03/20 17:10 DC Tamsulosin HCl (Flomax) 0.4 mg DAILY PO 01/04/20 09:00 01/03/20 17:10 DC Trazodone HCl (Desyrel) 25 mg QHS PO 01/03/20 21:00 01/04/20 21:12 Zolpidem Tartrate (Ambien) 10 mg QHS PO 01/03/20 21:00 01/03/20 17:10 NATHALY STEWARD MD Jan 05, 2020 08:52
[2020-01-05 14:00] VITALS: BP 138/82
[2020-01-05 20:00] VITALS: BP 169/87
[2020-01-05] MEDS: traZODone 25MG PER 1/2 TABLET PO SCH (21:20)
[2020-01-05] MEDS: METOPROLOL TART 25 MG TABLET PO SCH (21:21)
[2020-01-05] MEDS: ATORVASTATIN 20 MG TAB PO SCH (21:21)
[2020-01-06 05:51] VITALS: BP 142/90
[2020-01-06] MEDS: DOCUSATE SODIUM 100 MG CAP PO SCH ×2 (09:30→19:48)
[2020-01-06] MEDS: APIXABAN 5 MG TAB (ELIQUIS) PO SCH ×2 (09:30→19:56)
[2020-01-06] MEDS: PANTOPRAZOLE 40MG TAB (PROTONIX) PO SCH (09:31)
[2020-01-06] MEDS: amLODIPine 5 MG TAB PO SCH (09:31)
[2020-01-06] MEDS: METOPROLOL TART 25 MG TABLET PO SCH ×2 (09:31→19:57)
--- NOTE | 2020-01-06 11:40 | IPNPDOC ---
PM&R Progress Note DATE OF SERVICE: Jan 06, 2020 Process Artist Progress Note NPATIENT REHABILITATION ADMISSION DAY: #3 SUBJECTIVE: This is a 69-year-old hypertensive gentleman with history of atrial fibrillation was treated on Xarelto and had prior TIAs who presented to the hospital with an acute right-sided ischemic stroke 12/29/2019. 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 The patient had new interval strokes on repeat MRI involving the right centrum semiovale, frontal lobe and to a lesser extent parietal lobe as well as initial foci of acute infarcts in the right frontoparietal, medial,temporal and occipital lobes, basal ganglia and deep white matter, he was not felt to be a surgical candidate. Patient had a PICC line placed for venous access. Apparently fluctuating progression in functional abilities as there was extension of the strokes, however stable on transfer. He is sleeping well, no new complaints, participating well with the program, remains emotionally labile with frequent tearful crying jags. REVIEW OF SYSTEMS: The following is a completed review of systems and has been reviewed. Review of systems otherwise unremarkable. PAIN: Patient self reports no pain. EYES: No recent vision changes. EARS, NOSE, & THROAT: No throat pain, or dysphagia, or rhinorrhea. CARDIOVASCULAR: Denies chest pain or palpitations. PULMONARY: Denies shortness of breath. GASTROINTESTINAL: Denies constipation/diarrhea. GENITOURINARY: BPH MUSCULOSKELETAL: History prior cervical spine surgery, left shoulder pain NEUROLOGICAL:. Current L lachelle HEMATOLOGICAL: negative . SKIN: negative PSYCHIATRIC: Unremarkable. Notes insomnia can be a challenge All other review of systems found to be negative. ALLERGIES: See Below MEDICATIONS: Reviewed, see below. OBJECTIVE: VITAL SIGNS: Please see below. PHYSICAL EXAMINATION: GENERAL: Patient is pleasant and cooperative with exam, interspersed with episodic crying jags and emotional incontinence.. HEENT: Less obvious left Ptosis, left facial droop, extraocular movements intact. Clear conjunctiva, no adenopathy or thyromegaly. CARDIOVASCULAR: Regular sinus rhythm. No murmurs, rubs, or gallops. LUNGS: Clear to auscultation bilaterally. No wheezes. No rhonchi. ABDOMEN: Soft, nontender, nondistended. Positive bowel sounds. Normal active bowel sounds, no organomegaly. NEUROLOGICAL: Alert and oriented times three. Cranial nerves II through XII note d for L facial droop, decreased volitional eye closure and opening , ptosis. 4 Extremity Sensation grossly intact. Less tone left upper and now normal left lower extremity, less spastic posturing during MM testing. Able to elevate left upper extremity to 120 degrees, touch nose, strength increasing 3/5. LLE 4+/5 EXTREMITIES Generalized Tenderness about lateral deltoid region left shoulder girdle, no point tenderness biceps or AC joint. 5 /5 right maintenance controller, elbow flexion, elbow extension, knee extension, foot do rsiflexion, plantar flexion. 4/5 left quads, tibialis anterior. SKIN: Intact, healing PICC site right inner arm. . FUNCTIONAL STATUS: Premorbid: Independent with all activities of daily life as well as mobility without an assistive device. Making rapid progress, now from WBQC to NBQC ambulation 100' CGA, min A without AD, but unsteady without. Pt fatigues easily. Continent of bowel and bladder. GOALS: Regain highest level of functional capacity in communication, mobility, self care skills LABORATORY DATA: Reviewed.H/H, UA stable Please see below. IMAGIN12/29/2019 CT angiography of neck acute infarct right flores radiata, occluded extracranial right ICA at the origin, occluded left vertebral artery C2-3 with approximately 50% diameter stenosis mid basilar artery. 12/27/2019. MRI brain, multiple small punctate foci of acute infarcts, right frontal parietal and occipital lobes and deep white matter. Many in watershed zones . Normal flow void not identified in the intracranial right ICA, with concern for possible occlusion thrombus ASSESSMENT: This is a 69-year-old hypertensive gentleman with history of atrial fibrillation was treated on Xarelto and had prior TIAs who presented to the hospital with an acute right-sided ischemic stroke 12/29/2019 which progressed and he has dense left hemiplegia, arm worst than leg with some dysarthria, possible dysphagia and emotional incontinence issues. Probable mild left supraspinatus tendonitis, improving. PLAN: 1. .CVA-Comprehensive PT/OT/EVENT PLANNING MANAGER/Rehabilitation nursing, active ROM, stretching, progressive strengthening, mobility gait and ADLs training, bowel and bladder management protocols. 2. .HTN/HLD-monitor BP, trending a bit high 150s, may reflect increased exertion, emotional distress. Will optimize medications, increase Metoprolol to 50mg, and monitor, provide dietary education and family instruction 3. .History # Beers baseline-education, no S/S W/D, monitor and provide appropriate medications to optimize emotional status. Pharmacy indicates ambien had been DCd. offered Trazodone for HS sleep aid and to treat associated anxiety/grief reaction over significant loss of function, seemed to have tolerated well. 3. .Afib-sounds currently in rhythm, will monitor and request hospitalist consult to assist in adjusting medications as indicated, Pharm rec notes pre-DC shift from Xarelto to Eliquis, will continue and monitor. 4. GI on PPI, Dietary education and low salt, low fat pureed diet, progress as per EVENT PLANNING MANAGER evjuliano. May need swallowing study. 5. MSK-had lidoderm patch left shoulder, will change to Flector patch. Improving with increased volitional movement, less tone. 6. Psych-slightly less emotional distress and lability as he can see rapid improvement and regaining of function in ambulation and self care activities. continue counselling, adjustment of medications 7. Disp-eventual DC home to . TIME SPENT: Chart Review, examination and documentation [35] minutes. Allergies Coded Allergies: oxycodone (Verified Allergy, Unknown, 01/03/20) medical record Vital Signs Vital Signs Date Time Temp Pulse Resp B/P (MAP) Pulse Ox O2 Delivery O2 Flow Rate FiO2 01/06/20 09:31 78 142/90 01/06/20 05:51 98.1 18 94 Room Air Current Medications Current Medications Current Medications Medications (Trade) Dose Ordered Sig/Chano Route PRN Reason Start Time Stop Time Status Last Admin Dose Admin Acetaminophen (Tylenol Tab) 650 mg Q4HP PRN PO MILD PAIN (PS 1-4) 01/03/20 15:15 Amlodipine Besylate (Norvasc) 5 mg DAILY PO 01/04/20 09:00 01/06/20 09:31 Apixaban (Eliquis) 5 mg BID PO 01/03/20 21:00 01/06/20 09:30 Atorvastatin Calcium (Lipitor) 80 mg QHS PO 01/03/20 21:00 01/05/20 21:21 Docusate Sodium (Colace) 100 mg BID PO 01/03/20 21:00 01/06/20 09:30 Home Med (Med Rec Complete!) ASDIRECTED XX 01/03/20 16:30 01/03/20 16:44 DC Metoprolol Succinate (TopROL XL) 50 mg DAILY PO 01/04/20 09:00 01/03/20 17:11 DC Metoprolol Tartrate (Lopressor) 12.5 mg BID PO 01/03/20 21:00 01/05/20 09:53 DC 01/05/20 08:38 Metoprolol Tartrate (Lopressor) 25 mg BID PO 01/05/20 21:00 01/06/20 09:31 Pantoprazole Sodium (Protonix) 40 mg DAILY PO 01/04/20 09:00 01/06/20 09:31 Polyethylene Glycol (Miralax) 1 pkt DAILY PRN PO CONSTIPATION 01/03/20 15:15 Rivaroxaban (Xarelto) 20 mg DAILY PO 01/04/20 09:00 01/03/20 17:10 DC Tamsulosin HCl (Flomax) 0.4 mg DAILY PO 01/04/20 09:00 01/03/20 17:10 DC Trazodone HCl (Desyrel) 25 mg QHS PO 01/03/20 21:00 01/05/20 21:20 Zolpidem Tartrate (Ambien) 10 mg QHS PO 01/03/20 21:00 01/03/20 17:10 NATHALY STEWARD MD Jan 06, 2020 11:40
[2020-01-06] MEDS ORDERED: DICLOFENAC EPOLAMINE 1.3 % PATCH TOP PRN (11:45)
[2020-01-06 14:00] VITALS: BP 136/86
[2020-01-06] MEDS: traZODone 25MG PER 1/2 TABLET PO SCH (19:57)
[2020-01-06] MEDS: ATORVASTATIN 20 MG TAB PO SCH (19:57)
[2020-01-06 20:00] VITALS: BP 145/85
[2020-01-07 05:53] VITALS: BP 140/74
[2020-01-07] MEDS: APIXABAN 5 MG TAB (ELIQUIS) PO SCH ×2 (08:15→22:05)
[2020-01-07] MEDS: DOCUSATE SODIUM 100 MG CAP PO SCH ×2 (08:15→21:00)
[2020-01-07] MEDS: PANTOPRAZOLE 40MG TAB (PROTONIX) PO SCH (08:15)
[2020-01-07] MEDS: amLODIPine 5 MG TAB PO SCH (08:16)
[2020-01-07] MEDS: METOPROLOL TART 25 MG TABLET PO SCH ×2 (08:16→22:05)
[2020-01-07 14:00] VITALS: BP 133/76
[2020-01-07 20:00] VITALS: BP 135/79
[2020-01-07] MEDS: ATORVASTATIN 20 MG TAB PO SCH (22:05)
[2020-01-07] MEDS: traZODone 25MG PER 1/2 TABLET PO SCH (22:06)
[2020-01-08 06:00] VITALS: BP 138/91
[2020-01-08] MEDS: PANTOPRAZOLE 40MG TAB (PROTONIX) PO SCH (08:35)
[2020-01-08] MEDS: amLODIPine 5 MG TAB PO SCH (08:35)
[2020-01-08] MEDS: APIXABAN 5 MG TAB (ELIQUIS) PO SCH ×2 (08:35→21:48)
[2020-01-08] MEDS: METOPROLOL TART 25 MG TABLET PO SCH ×2 (08:35→21:49)
[2020-01-08] MEDS: DOCUSATE SODIUM 100 MG CAP PO SCH ×2 (08:36→21:48)
[2020-01-08 14:00] VITALS: BP 116/76
[2020-01-08 20:04] VITALS: BP 143/82
[2020-01-08] MEDS: traZODone 25MG PER 1/2 TABLET PO SCH (21:48)
[2020-01-08] MEDS: ATORVASTATIN 20 MG TAB PO SCH (21:48)
[2020-01-09 05:49] VITALS: BP 126/81
[2020-01-09] MEDS: APIXABAN 5 MG TAB (ELIQUIS) PO SCH ×2 (07:28→20:37)
[2020-01-09] MEDS: DOCUSATE SODIUM 100 MG CAP PO SCH ×2 (07:28→20:38)
[2020-01-09] MEDS: amLODIPine 5 MG TAB PO SCH (07:28)
[2020-01-09] MEDS: METOPROLOL TART 25 MG TABLET PO SCH ×2 (07:28→20:37)
[2020-01-09] MEDS: PANTOPRAZOLE 40MG TAB (PROTONIX) PO SCH (07:28)
[2020-01-09] MEDS: DICLOFENAC EPOLAMINE 1.3 % PATCH TOP SCH (09:00)
--- NOTE | 2020-01-09 09:32 | IPNPDOC ---
PM&R Progress Note DATE OF SERVICE: Jan 09, 2020 Truck Driver Teamster Progress Note DATE OF ADMISSION: Jan 03, 2020 at 14:37 NPATIENT REHABILITATION ADMISSION DAY: #6 SUBJECTIVE: This is a 69-year-old hypertensive gentleman with history of atrial fibrillation was treated on Xarelto and had prior TIAs who presented to the hospital with an acute right-sided ischemic stroke 12/29/2019. 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 The patient had new interval strokes on repeat MRI involving the right centrum semiovale, frontal lobe and to a lesser extent parietal lobe as well as initial foci of acute infarcts in the right frontoparietal, medial,temporal and occipital lobes, basal ganglia and deep white matter, he was not felt to be a surgical candidate. Patient had a PICC line placed for venous access. Apparently fluctuating progression in functional abilities as there was extension of the strokes, however stable on transfer. He is sleeping well, no new complaints, participating well with the program, remains emotionally labile with frequent tearful crying jags, however making daily gains in return of function, has progressed from FWW to NBQC and improving function and AROM LUE. Sleeping well. REVIEW OF SYSTEMS: The following is a completed review of systems and has been reviewed. Review of systems otherwise unremarkable. PAIN: Patient self reports no pain. EYES: No recent vision changes. EARS, NOSE, & THROAT: No throat pain, or dysphagia, or rhinorrhea. CARDIOVASCULAR: Denies chest pain or palpitations. PULMONARY: Denies shortness of breath. GASTROINTESTINAL: Denies constipation/diarrhea. GENITOURINARY: BPH MUSCULOSKELETAL: History prior cervical spine surgery, left shoulder pain NEUROLOGICAL:. Current L lachelle, dysphagia, dysarthria HEMATOLOGICAL: negative . SKIN: negative PSYCHIATRIC: Unremarkable. Notes insomnia can be a challenge All other review of systems found to be negative. ALLERGIES: See Below MEDICATIONS: Reviewed, see below. OBJECTIVE: VITAL SIGNS: Please see below. PHYSICAL EXAMINATION: GENERAL: Patient is pleasant and cooperative with exam, interspersed with episodic crying jags and emotional incontinence.. HEENT: Ptosis nearly resolved, improving left facial droop, extraocular movements intact. Clear conjunctiva, no adenopathy or thyromegaly. CARDIOVASCULAR: S1 S2 occasional extra beat SM I/ LUNGS: Clear to auscultation bilaterally. No wheezes. No rhonchi. ABDOMEN: Soft, nontender, nondistended. Positive bowel sounds. Normal active bowel sounds, no organomegaly. NEUROLOGICAL: Alert and oriented times three. 4 Extremity Sensation intact. Less tone left upper and now normal left lower extremity, less spastic posturing during MM testing. Able to elevate left upper extremity to 120 degrees, touch nose, strength increasing 3+/5. LLE 4+/5 EXTREMITIES less tenderness left shoulder girdle SKIN: Intact. FUNCTIONAL STATUS: Premorbid: Independent with all activities of daily life as well as mobility without an assistive device. Making rapid progress, now from WBQC to NBQC ambulation 150' CGA, min for sequencing. Working on strengthening with Nuestep to promote reciprocal patterning, also working on dynamic standing balance. Pt fatigues easily and often becomes emotional during sessions. GOALS: Regain highest level of functional capacity in communication, mobility, self care skills LABORATORY DATA: Reviewed.H/H, UA stable Please see below. IMAGIN12/29/2019 CT angiography of neck acute infarct right flores radiata, occluded extracranial right ICA at the origin, occluded left vertebral artery C2-3 with approximately 50% diameter stenosis mid basilar artery. 12/27/2019. MRI brain, multiple small punctate foci of acute infarcts, right frontal parietal and occipital lobes and deep white matter. Many in watershed zones . Normal flow void not identified in the intracranial right ICA, with concern for possible occlusion thrombus ASSESSMENT: This is a 69-year-old hypertensive gentleman with history of atrial fibrillation was treated on Xarelto and had prior TIAs who presented to the hospital with an acute right-sided ischemic stroke 12/29/2019 which progressed and he has improving dense spastic left hemiplegia, arm worst than leg with some dysarthria, mild dysphagia tolerating pureed diet, and emotional incontinence issues. Probable mild left supraspinatus tendonitis, improving. PLAN: 1. .CVA-Comprehensive PT/OT/RUG INSPECTOR HELPER/Rehabilitation nursing, active ROM, stretching, progressive strengthening, mobility gait and ADLs training, bowel and bladder management protocols. 2. .HTN/HLD-monitor BP, improving this week, 126 this morning with optimized medications will continue to monitor, provide dietary education and family instruction 3. .History # Beers baseline-education, no S/S W/D, monitor and provide appropriate medications to optimize emotional status. Pharmacy indicates ambien had been DCd. offered Trazodone for HS sleep aid and to treat associated anxiety/grief reaction over significant loss of function, seemed to have tolerated well. 3. .Afib-sounds currently in rhythm, will monitor, appreciate hospitalist consult to assist in adjusting medications as indicated, Pharm rec notes pre-DC shift from Xarelto to Eliquis, will continue and monitor. 4. GI on PPI, Dietary education and low salt, low fat pureed diet, progress as per RUG INSPECTOR HELPER evjuliano. May need swallowing study. 5. MSK-had lidoderm patch left shoulder, changed to Flector patch, however no doses given thus far, will assess P rx. Improving with increased volitional movement, less tone. 6. Psych-slightly less emotional distress and lability as he can see rapid improvement and regaining of function in ambulation and self care activities. continue counselling, adjustment of medications 7. Disp-eventual DC home to . TIME SPENT: Chart Review, examination and documentation 35 minutes. Allergies Coded Allergies: oxycodone (Verified Allergy, Unknown, 01/03/20) medical record Vital Signs Vital Signs Date Time Temp Pulse Resp B/P (MAP) Pulse Ox O2 Delivery O2 Flow Rate FiO2 01/09/20 07:28 60 126/81 01/09/20 05:49 97.3 18 96 Room Air Current Medications Current Medications Current Medications Medications (Trade) Dose Ordered Sig/Chano Route PRN Reason Start Time Stop Time Status Last Admin Dose Admin Acetaminophen (Tylenol Tab) 650 mg Q4HP PRN PO MILD PAIN (PS 1-4) 01/03/20 15:15 Amlodipine Besylate (Norvasc) 5 mg DAILY PO 01/04/20 09:00 01/09/20 07:28 Apixaban (Eliquis) 5 mg BID PO 01/03/20 21:00 01/09/20 07:28 Atorvastatin Calcium (Lipitor) 80 mg QHS PO 01/03/20 21:00 01/08/20 21:48 Diclofenac Epolamine (Flector 1.3%) 1 patch DAILYPRN PRN TOP pain 01/06/20 11:45 Docusate Sodium (Colace) 100 mg BID PO 01/03/20 21:00 01/08/20 21:48 Home Med (Med Rec Complete!) ASDIRECTED XX 01/03/20 16:30 01/03/20 16:44 DC Metoprolol Succinate (TopROL XL) 50 mg DAILY PO 01/04/20 09:00 01/03/20 17:11 DC Metoprolol Tartrate (Lopressor) 12.5 mg BID PO 01/03/20 21:00 01/05/20 09:53 DC 01/05/20 08:38 Metoprolol Tartrate (Lopressor) 25 mg BID PO 01/05/20 21:00 01/09/20 07:28 Pantoprazole Sodium (Protonix) 40 mg DAILY PO 01/04/20 09:00 01/09/20 07:28 Polyethylene Glycol (Miralax) 1 pkt DAILY PRN PO CONSTIPATION 01/03/20 15:15 Rivaroxaban (Xarelto) 20 mg DAILY PO 01/04/20 09:00 01/03/20 17:10 DC Tamsulosin HCl (Flomax) 0.4 mg DAILY PO 01/04/20 09:00 01/03/20 17:10 DC Trazodone HCl (Desyrel) 25 mg QHS PO 01/03/20 21:00 01/08/20 21:48 Zolpidem Tartrate (Ambien) 10 mg QHS PO 01/03/20 21:00 01/03/20 17:10 NATHALY STEWARD MD Jan 09, 2020 09:32
[2020-01-09 14:00] VITALS: BP 122/57
[2020-01-09 20:00] VITALS: BP 137/79
[2020-01-09] MEDS: ATORVASTATIN 20 MG TAB PO SCH (20:37)
[2020-01-09] MEDS: traZODone 25MG PER 1/2 TABLET PO SCH (20:37)
[2020-01-10 06:00] VITALS: BP 145/88
[2020-01-10] MEDS: DICLOFENAC EPOLAMINE 1.3 % PATCH TOP SCH (09:00)
[2020-01-10] MEDS: DOCUSATE SODIUM 100 MG CAP PO SCH ×2 (09:00→20:38)
[2020-01-10] MEDS: PANTOPRAZOLE 40MG TAB (PROTONIX) PO SCH (09:51)
[2020-01-10] MEDS: amLODIPine 5 MG TAB PO SCH (09:51)
[2020-01-10] MEDS: METOPROLOL TART 25 MG TABLET PO SCH ×2 (09:51→20:37)
[2020-01-10] MEDS: APIXABAN 5 MG TAB (ELIQUIS) PO SCH ×2 (09:54→20:38)
--- NOTE | 2020-01-10 10:36 | IPNPDOC ---
PM&R Progress Note DATE OF SERVICE: Jan 10, 2020 Hand Frame Surgical Elastic Knitter Progress Note DATE OF ADMISSION: Jan 03, 2020 at 14:37 INPATIENT REHABILITATION ADMISSION DAY: #7 SUBJECTIVE: This is a 69-year-old hypertensive gentleman with history of atrial fibrillation was treated on Xarelto and had prior TIAs that presented to the hospital with an acute right-sided ischemic stroke 12/29/2019. 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 The patient had new interval strokes on repeat MRI involving the right centrum semiovale, frontal lobe and to a lesser extent parietal lobe as well as initial foci of acute infarcts in the right frontoparietal, medial,temporal and occipital lobes, basal ganglia and deep white matter, he was not felt to be a surgical candidate. Patient had a PICC line placed for venous access. Apparently fluctuating progression in functional abilities as there was extension of the strokes, however stable on transfer. He is sleeping well, no new complaints, participating well with the program, is less emotionally labile with fewer tearful crying jags and is making daily gains in return of function, has progressed from FWW to NBQC and improving function and AROM LUE. Initial left shoulder girdle discomfort improving with therapy interventions and positioning. Fine motor skills remain a challenge. ALLERGIES: See Below MEDICATIONS: Reviewed, see below. OBJECTIVE: GENERAL: Patient is pleasant and cooperative with exam, no crying jags nor emotional incontinence today. HEENT: Ptosis nearly resolved, widened palpebral fissure noted, improving left facial droop, extraocular movements intact. Clear conjunctiva, no adenopathy or thyromegaly. CARDIOVASCULAR: S1 S2 occasional extra beat SM I/ LUNGS: Clear to auscultation bilaterally. No wheezes. No rhonchi. ABDOMEN: Soft, nontender, nondistended. Positive bowel sounds. Normal active bowel sounds, no organomegaly. NEUROLOGICAL: Alert and oriented times three. 4 Extremity Sensation intact. Less tone 1/5 left upper and now normal left lower extremity, much less spastic posturing during MM testing. Able to elevate left upper extremity to 130 degrees, touch nose, strength increasing 3+/5, just about able to oppose thumb and index. LLE 4+/5 EXTREMITIES less tenderness left shoulder girdle anterior region, still slight over lateral deltoid region SKIN: Intact. FUNCTIONAl STATUS: Transfers bed to chair, toilet and commode with standby assistance, requires verbal cues for increasing left awareness and pacing for safety. Working on fine motor coordination in the left hand. Ambulatory with narrow-base quad cane with standby assistance. LABORATORY DATA: Reviewed. Please see below. MICROBIOLOGY: Please see below. ASSESSMENT AND PLAN: R CVA dense spastic L hemiparesis Dysarthria Dysphagia Emotional Incontinence HTN HLD ASCVD Left shoulder supraspinatus tendonitis, improving This is a 69-year-old hypertensive gentleman with history of atrial fibrillation was treated on Xarelto and had prior TIAs who presented to the hospital with an acute right-sided ischemic stroke 12/29/2019 which progressed and he has improving dense spastic left hemiplegia, arm worst than leg with some dysarthria, mild dysphagia tolerating pureed diet, and emotional incontinence issues. Probable mild left supraspinatus tendonitis, improving. PLAN: 1. .CVA-Comprehensive PT/OT/REPORTING DEVELOPER/Rehabilitation nursing, active ROM, stretching, progressive strengthening, mobility gait and ADLs training, bowel and bladder management protocols. 2. .HTN/HLD-monitor BP, running 140s this week, continue to optimize medications will continue to monitor, provide dietary education and family instruction 3. .History # Beers baseline-education, no S/S W/D, monitor and provide appropriate medications to optimize emotional status. Pharmacy indicates ambien had been DCd. taking Trazodone for HS sleep aid and to treat associated anxiety/grief reaction over significant loss of function, seemed to have tolerated well. 3. Afib-sounds currently in rhythm, will monitor, appreciate hospitalist consult to assist in adjusting medications as indicated, Pharm rec notes pre-DC shift from Xarelto to Eliquis, will continue and monitor. 4. GI on PPI, Dietary education and low salt, low fat pureed diet, progress as per REPORTING DEVELOPER eval. May need swallowing study, stable on pureed diet 5. MSK-had lidoderm patch left shoulder, changed to Flector patch, however patient prefers not to use. Monitor continued improvement P rx. Improving with increased volitional movement, less tone. 6. Psych-slightly less emotional distress and lability as he can see rapid improvement and regaining of function in ambulation and self care activities. continue counselling, adjustment of medications 7. Disp-eventual DC home to . TIME SPENT: Chart Review, examination and documentation 35 minutes. Allergies Coded Allergies: oxycodone (Verified Allergy, Unknown, 01/03/20) medical record Vital Signs Vital Signs Date Time Temp Pulse Resp B/P (MAP) Pulse Ox O2 Delivery O2 Flow Rate FiO2 01/10/20 09:51 78 145/88 01/10/20 06:00 97.3 18 97 Room Air Current Medications Current Medications Current Medications Medications (Trade) Dose Ordered Sig/Chano Route PRN Reason Start Time Stop Time Status Last Admin Dose Admin Acetaminophen (Tylenol Tab) 650 mg Q4HP PRN PO MILD PAIN (PS 1-4) 01/03/20 15:15 Amlodipine Besylate (Norvasc) 5 mg DAILY PO 01/04/20 09:00 01/10/20 09:51 Apixaban (Eliquis) 5 mg BID PO 01/03/20 21:00 01/10/20 09:54 Atorvastatin Calcium (Lipitor) 80 mg QHS PO 01/03/20 21:00 01/09/20 20:37 Diclofenac Epolamine (Flector 1.3%) 1 patch DAILY TOP 01/09/20 09:00 Diclofenac Epolamine (Flector 1.3%) 1 patch DAILYPRN PRN TOP pain 01/06/20 11:45 01/09/20 09:40 DC Docusate Sodium (Colace) 100 mg BID PO 01/03/20 21:00 01/08/20 21:48 Home Med (Med Rec Complete!) ASDIRECTED XX 01/03/20 16:30 01/03/20 16:44 DC Metoprolol Succinate (TopROL XL) 50 mg DAILY PO 01/04/20 09:00 01/03/20 17:11 DC Metoprolol Tartrate (Lopressor) 12.5 mg BID PO 01/03/20 21:00 01/05/20 09:53 DC 01/05/20 08:38 Metoprolol Tartrate (Lopressor) 25 mg BID PO 01/05/20 21:00 01/10/20 09:51 Miscellaneous (Unresolved Clarification Entry) SEE LABEL COMMENTS DAILY XX 01/10/20 09:00 Pantoprazole Sodium (Protonix) 40 mg DAILY PO 01/04/20 09:00 01/10/20 09:51 Polyethylene Glycol (Miralax) 1 pkt DAILY PRN PO CONSTIPATION 01/03/20 15:15 Rivaroxaban (Xarelto) 20 mg DAILY PO 01/04/20 09:00 01/03/20 17:10 DC Tamsulosin HCl (Flomax) 0.4 mg DAILY PO 01/04/20 09:00 01/03/20 17:10 DC Trazodone HCl (Desyrel) 25 mg QHS PO 01/03/20 21:00 01/09/20 20:37 Zolpidem Tartrate (Ambien) 10 mg QHS PO 01/03/20 21:00 01/03/20 17:10 NATHALY STEWARD MD Jan 10, 2020 10:36
[2020-01-10 14:00] VITALS: BP 124/82
[2020-01-10 20:00] VITALS: BP 143/90
[2020-01-10] MEDS: traZODone 25MG PER 1/2 TABLET PO SCH (20:37)
[2020-01-10] MEDS: ATORVASTATIN 20 MG TAB PO SCH (20:38)
[2020-01-11 05:58] VITALS: BP 156/88
[2020-01-11 06:58] LABS: ALBUMIN 3.3 GM/DL (3.2-5.2); ALT/SGPT 45 U/L (12-78); BILIRUBIN,TOTAL 1.5 MG/DL (0.2-1.0); BLOOD UREA NITROGEN 16 MG/DL (7-18); CALCIUM LEVEL 9.3 MG/DL (8.8-10.2); CARBON DIOXIDE LEVEL 26 MEQ/L (21-32); CHLORIDE LEVEL 110 MEQ/L (98-107); CREATININE FOR GFR 0.93 MG/DL (0.70-1.30); GLOMERULAR FILTRATION RATE > 60.0 (>49); GLUCOSE, FASTING 91 MG/DL (70-100); SODIUM LEVEL 143 MEQ/L (136-145); TOTAL PROTEIN 6.3 GM/DL (6.4-8.2)
[2020-01-11] MEDS: METOPROLOL TART 25 MG TABLET PO SCH ×2 (08:35→21:03)
[2020-01-11] MEDS: APIXABAN 5 MG TAB (ELIQUIS) PO SCH ×2 (08:35→21:02)
[2020-01-11] MEDS: PANTOPRAZOLE 40MG TAB (PROTONIX) PO SCH (08:35)
[2020-01-11] MEDS: amLODIPine 5 MG TAB PO SCH (08:35)
[2020-01-11] MEDS: DOCUSATE SODIUM 100 MG CAP PO SCH ×2 (08:36→21:02)
[2020-01-11] MEDS: DICLOFENAC EPOLAMINE 1.3 % PATCH TOP SCH (08:36)
[2020-01-11] MEDS ORDERED: E-Z-PAQUE 96% w/w SUSP 176GM BTL As Ordered ONE (11:34)
[2020-01-11] MEDS ORDERED: VARIBAR NECTAR 40% w/v 240ML SUSP BTL As Ordered ONE (11:34)
[2020-01-11] MEDS ORDERED: VARIBAR PUDDING 40% w/v 230ML TUBE As Ordered ONE (11:34)
[2020-01-11] MEDS ORDERED: BARIUM SULFATE 700 MG TABLET (E-Z-DISK) As Ordered ONE (11:35)
--- NOTE | 2020-01-11 13:49 | IPNPDOC ---
Text Note Date of Service The patient was seen on 01/11/20. NOTE Subjective: No complaints today. His speech is clearer. He still continues to have dysphagia, getting a cookie swallow today. PHYSICAL EXAMINATION: VITAL SIGNS: Please see below. GENERAL: Patient is pleasant and cooperative dysarthric speech, soft voice, facial deviation to right. HEENT: Obvious left facial droop extraocular movements intact. Moist mucous membranes, anicteric eyes, CARDIOVASCULAR: S2 S2 RRR, No rub or murmur or gallop LUNGS: Clear to auscultation bilaterally. No wheezes. No rhonchi or crackles. ABDOMEN: Soft, nontender, nondistended. Positive bowel sounds. Normal active bowel sounds, no organomegaly. NEUROLOGICAL: Alert and oriented times three. Cranial nerves II through XII noted for L facial droop, decreased eye closure. 4 Extremity Sensation grossly intact. Left hemiparesis. left upper extremity weaker then lower ex. EXTREMITIES: No edema or cyanosis or clubbing. LABORATORY DATA: Please see below. ASSESSMENT and Plan: This is a 69-year-old hypertensive gentleman with history of atrial fibrillation was treated on Xarelto and had prior TIAs , hypertension, BPH who presented to [facility] with an acute right-sided ischemic stroke 12/29/2019 which progressed and he developed dense left hemiplegia, arm worse than leg with some dysarthria, possible dysphagia and emotional incontinence issues. Acute ischemic CVA with left hemiparesis, dysarthria and dysphagia on eliquis and statin Swallow eval as per ARU. PT/OT as per ARU HTN controlled On amlodipine and metoprolol. Paroxysmal Afib Now in sinus on Eliquis HLD on statin. Insomnia on trazodone GI on PPI VS,Fishbone, I+O VS, Fishbone, I+O Laboratory Tests 01/11/20 06:04 Vital Signs Date Time Temp Pulse Resp B/P (MAP) Pulse Ox O2 Delivery O2 Flow Rate FiO2 01/11/20 08:35 60 156/88 01/11/20 05:58 97.4 18 96 Room Air I&O- Last 24 Hours up to 6 AM 01/11/20 06:00 Intake Total 500 ml Balance 500 ml RIP THOMPSON MD Jan 11, 2020 13:49
[2020-01-11 14:00] VITALS: BP 143/70
--- NOTE | 2020-01-11 14:31 | IPNPDOC ---
PM&R Progress Note DATE OF SERVICE: Jan 11, 2020 Coin Box Inspector Progress Note DATE OF ADMISSION: Jan 03, 2020 at 14:37 DATE OF SERVICE: Jan 10, 2020 Coin Box Inspector Progress Note INPATIENT REHABILITATION ADMISSION DAY: #8 SUBJECTIVE: This is a 69-year-old hypertensive gentleman with history of atrial fibrillation was treated on Xarelto and had prior TIAs that presented to the hospital with an acute right-sided ischemic stroke 12/29/2019. 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 The patient had new interval strokes on repeat MRI involving the right centrum semiovale, frontal lobe and to a lesser extent parietal lobe as well as initial foci of acute infarcts in the right frontoparietal, medial,temporal and occipital lobes, basal ganglia and deep white matter, he was not felt to be a surgical candidate. Patient had a PICC line placed for venous access. Apparently fluctuating progression in functional abilities as there was extension of the strokes, however stable on transfer. He is sleeping well, no new complaints, participating well with the program, is less emotionally labile with fewer tearful crying jags and is making daily gains in return of function, has progressed from FWW to NBQC and improving function and AROM LUE. Initial left shoulder girdle discomfort improving with therapy in terventions and positioning. Fine motor skills remain a challenge. Swallowing and sufficient caloric intake remain a challenge on pureed diet. His partial dentures are not here, making it difficult to fully asses mastication and swallowing capabilities, apparently speech noted some sticking and risk of choking due to poor management of bolus due to tongue weakness and decreased stereognosis. Bite size and consistency and calorie count needed to further assess. ALLERGIES: See Below MEDICATIONS: Reviewed, see below. OBJECTIVE: GENERAL: Patient is pleasant and cooperative with exam, no crying jags nor emotional incontinence today, more facial expression although still with prominent left facial droop and tongue deviation. HEENT: Ptosis nearly resolved, widened palpebral fissure noted, improving left facial droop, extraocular movements and VF intact. Clear conjunctiva, no adenopathy or thyromegaly. CARDIOVASCULAR: S1 S2 occasional extra beat SM I/ LUNGS: Clear to auscultation bilaterally. No wheezes. No rhonchi. ABDOMEN: Soft, nontender, nondistended. Positive bowel sounds. Normal active bowel sounds, no organomegaly. NEUROLOGICAL: Alert and oriented times three. 4 Extremity Sensation intact. Less tone 1/5 left upper slight cogwheeling at elbow, and now normal left lower extremity, much less spastic posturing during MM testing. Able to elevate left upper extremity to 130 degrees, touch nose, strength increasing 4/5, just about able to oppose thumb and index. LLE 4+/5 EXTREMITIES less tenderness left shoulder girdle anterior region, still slight with palpable tendon thickening and tenderness over lateral deltoid region SKIN: Intact. FUNCTIONAl STATUS: Transfers bed to chair, toilet and commode with standby assistance, requires verbal cues for increasing left awareness and pacing for safety. Working on fine motor coordination in the left hand. Ambulatory with narrow-base quad cane with standby assistance. LABORATORY DATA: Reviewed. Please see below. MICROBIOLOGY: Please see below. ASSESSMENT AND PLAN: R CVA dense spastic L hemiparesis Dysarthria Dysphagia Emotional Incontinence HTN HLD ASCVD Left shoulder supraspinatus tendonitis, improving This is a 69-year-old hypertensive gentleman with history of atrial fibrillation was treated on Xarelto and had prior TIAs who presented to the hospital with an acute right-sided ischemic stroke 12/29/2019 which progressed and he has improving dense spastic left hemiplegia, arm worst than leg with some dysarthria, mild dysphagia tolerating pureed diet, and emotional incontinence issues. Probable mild left supraspinatus tendonitis, improving. PLAN: 1. .CVA-Comprehensive PT/OT/HYDRO PNEUMATIC TESTER/Rehabilitation nursing, active ROM, stretching, progressive strengthening, mobility gait and ADLs training, bowel and bladder management protocols. Swallowing study negative for aspiration, will need precautions for managing bolus and avoiding choking, supplement with protein shakes and drinks. 2. .HTN/HLD-monitor BP, running 140s this week, continue to optimize medications will continue to monitor, provide dietary education and family instruction 3. .History # Beers baseline-education, no S/S W/D, monitor and provide appropriate medications to optimize emotional status. Pharmacy indicates ambien had been DCd. taking Trazodone for HS sleep aid and to treat associated anxiety/grief reaction over significant loss of function, seemed to have tolerated well. Education regarding no return to ETOH ongoing. 3. Afib-sounds currently in rhythm, will monitor, appreciate hospitalist consult to assist in adjusting medications as indicated, Pharm rec notes pre-DC shift from Xarelto to Eliquis, will continue and monitor. 4. GI on PPI, Dietary education and low salt, low fat pureed diet, progress as per HYDRO PNEUMATIC TESTER sierra. Will proceed with swallowing study, stable on pureed diet and precautions, obtain calorie count. Concern regarding possibly limited services in his residential geographic area, we need to obtain as much information and establish optimal care plan and home program prior to discharge. 5. MSK-had lidoderm patch left shoulder, changed to Flector patch, however patient prefers not to use. Monitor continued improvement P rx. Improving with increased volitional movement, less tone. 6. Psych-slightly less emotional distress and lability as he can see rapid improvement and regaining of function in ambulation and self care activities. continue counselling, adjustment of medications 7. Disp-eventual DC home to . TIME SPENT: Chart Review, examination and documentation 35 minutes. Allergies Coded Allergies: oxycodone (Verified Allergy, Unknown, 01/03/20) medical record Vital Signs Vital Signs Date Time Temp Pulse Resp B/P (MAP) Pulse Ox O2 Delivery O2 Flow Rate FiO2 01/11/20 08:35 60 156/88 01/11/20 05:58 97.4 18 96 Room Air Laboratory Data CBC/BMP Laboratory Tests 01/11/20 06:04 Labs 24H Laboratory Tests 2 01/11/20 06:04: Anion Gap 7L, Glomerular Filtration Rate > 60.0, Calcium Level 9.3, Total Bilirubin 1.5H, Aspartate Amino Transf (AST/SGOT) 25, Alanine Aminotransferase (ALT/SGPT) 45, Alkaline Phosphatase 134H, Total Protein 6.3L, Albumin 3.3, Albumin/Globulin Ratio 1.1 Current Medications Current Medications Current Medications Medications (Trade) Dose Ordered Sig/Chano Route PRN Reason Start Time Stop Time Status Last Admin Dose Admin Acetaminophen (Tylenol Tab) 650 mg Q4HP PRN PO MILD PAIN (PS 1-4) 01/03/20 15:15 Amlodipine Besylate (Norvasc) 5 mg DAILY PO 01/04/20 09:00 01/11/20 08:35 Apixaban (Eliquis) 5 mg BID PO 01/03/20 21:00 01/11/20 08:35 Atorvastatin Calcium (Lipitor) 80 mg QHS PO 01/03/20 21:00 01/10/20 20:38 Diclofenac Epolamine (Flector 1.3%) 1 patch DAILY TOP 01/09/20 09:00 Diclofenac Epolamine (Flector 1.3%) 1 patch DAILYPRN PRN TOP pain 01/06/20 11:45 01/09/20 09:40 DC Docusate Sodium (Colace) 100 mg BID PO 01/03/20 21:00 01/10/20 20:38 Home Med (Med Rec Complete!) ASDIRECTED XX 01/03/20 16:30 01/03/20 16:44 DC Metoprolol Succinate (TopROL XL) 50 mg DAILY PO 01/04/20 09:00 01/03/20 17:11 DC Metoprolol Tartrate (Lopressor) 12.5 mg BID PO 01/03/20 21:00 01/05/20 09:53 DC 01/05/20 08:38 Metoprolol Tartrate (Lopressor) 25 mg BID PO 01/05/20 21:00 01/11/20 08:35 Miscellaneous (Unresolved Clarification Entry) SEE LABEL COMMENTS DAILY XX 01/10/20 09:00 01/10/20 11:27 DC Pantoprazole Sodium (Protonix) 40 mg DAILY PO 01/04/20 09:00 01/11/20 08:35 Polyethylene Glycol (Miralax) 1 pkt DAILY PRN PO CONSTIPATION 01/03/20 15:15 Rivaroxaban (Xarelto) 20 mg DAILY PO 01/04/20 09:00 01/03/20 17:10 DC Tamsulosin HCl (Flomax) 0.4 mg DAILY PO 01/04/20 09:00 01/03/20 17:10 DC Trazodone HCl (Desyrel) 25 mg QHS PO 01/03/20 21:00 01/10/20 20:37 Zolpidem Tartrate (Ambien) 10 mg QHS PO 01/03/20 21:00 01/03/20 17:10 NATHALY STEWARD MD Jan 11, 2020 08:50
--- NOTE | 2020-01-11 17:18 | REP ---
INDICATION: dysphagia. COMPARISON: None. TECHNIQUE: The procedure was performed under the direct supervision of Dr. Medrano. The procedure was performed with Anne Lama from speech pathology present. 5 cc aliquots of thin and pudding consistency barium was administered. FINDINGS: There is no evidence of penetration or aspiration. The detailed report of this examination will be provided by speech pathology. IMPRESSION: There is no evidence of penetration or aspiration. 0.6 minutes of fluoroscopy time was utilized for this procedure. <Electronically signed by Casey Avila > 01/11/20 1703 <Electronically signed by Forrest Medrano > 01/11/20 7310
[2020-01-11 20:00] VITALS: BP 127/79
[2020-01-11] MEDS: traZODone 25MG PER 1/2 TABLET PO SCH (21:02)
[2020-01-11] MEDS: ATORVASTATIN 20 MG TAB PO SCH (21:06)
[2020-01-12 05:15] VITALS: BP 121/77
[2020-01-12] MEDS: APIXABAN 5 MG TAB (ELIQUIS) PO SCH ×2 (08:54→20:29)
[2020-01-12] MEDS: DOCUSATE SODIUM 100 MG CAP PO SCH ×2 (08:54→20:29)
[2020-01-12] MEDS: DICLOFENAC EPOLAMINE 1.3 % PATCH TOP SCH (08:54)
[2020-01-12] MEDS: PANTOPRAZOLE 40MG TAB (PROTONIX) PO SCH (08:54)
[2020-01-12] MEDS: METOPROLOL TART 25 MG TABLET PO SCH ×2 (08:55→20:30)
[2020-01-12] MEDS: amLODIPine 5 MG TAB PO SCH (08:55)
[2020-01-12 14:00] VITALS: BP 111/64
[2020-01-12 20:20] VITALS: BP 128/70
[2020-01-12] MEDS: traZODone 25MG PER 1/2 TABLET PO SCH (20:29)
[2020-01-12] MEDS: ATORVASTATIN 20 MG TAB PO SCH (20:30)
[2020-01-13 05:42] VITALS: BP 149/90
[2020-01-13] MEDS: DICLOFENAC EPOLAMINE 1.3 % PATCH TOP SCH (09:00)
[2020-01-13] MEDS: amLODIPine 5 MG TAB PO SCH (09:10)
[2020-01-13] MEDS: APIXABAN 5 MG TAB (ELIQUIS) PO SCH (09:10)
[2020-01-13 09:11] VITALS: BP 149/90
[2020-01-13] MEDS: PANTOPRAZOLE 40MG TAB (PROTONIX) PO SCH (09:11)
[2020-01-13] MEDS: DOCUSATE SODIUM 100 MG CAP PO SCH (09:11)
[2020-01-13] MEDS: METOPROLOL TART 25 MG TABLET PO SCH (09:11)
[2020-01-13] MEDS ORDERED: METO1TAB87 PO (09:25)
[2020-01-13] MEDS ORDERED: TRAZ-252 PO (09:25)
[2020-01-13] MEDS ORDERED: PEG1POW PO (09:25)
--- NOTE | 2020-01-13 09:33 | DS.PDOC ---
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 Left shoulder pain Emotional lability . HOSPITAL COURSE: This is a 69-year-old hypertensive gentleman with history of atrial fibrillation was treated on Xarelto and had prior TIAs who presented to the hospital with an acute right-sided ischemic stroke 12/29/2019. 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 The patient had new interval strokes on repeat MRI involving the right centrum semiovale, frontal lobe and to a lesser extent parietal lobe as well as initial foci of acute infarcts in the right frontoparietal medial temporal occipital lobes. Basal ganglia and deep white matter, he was not felt to be a surgical candidate. There was apparently fluctuating progression in functional abilities as there were extension of the strokes, stablized on transfer to ARU 01.03.2020. Patient initially presented with significant emotional lability, dense left hemiplegia affecting both arm and leg, feeding issues and dysarthric speech. He made rapid progression from ambulation with a walker to a quad cane and single point cane, full recovery of strength in left lower extremity and 60% recovery of strength in left upper extremity along with reduction in spasticity in the left upper and lower extremity and improvement in left shoulder girdle discomfort. Fine motor skills and Left neglect, pocketing when eating and emotional lability remain challenges to continue to be worked on in the outpatient setting. Suggest a trial of Neudexta for pseudobulbar affect be considered, not available on formulary in hospital. REVIEW OF SYSTEMS: The following is a completed review of systems and has been reviewed. Review of systems otherwise unremarkable. PAIN: Patient self reports no pain. EYES: No recent vision changes. EARS, NOSE, & THROAT: No throat pain, or dysphagia, or rhinorrhea. CARDIOVASCULAR: Denies chest pain or palpitations. PULMONARY: Denies shortness of breath. GASTROINTESTINAL: Denies constipation/diarrhea. GENITOURINARY: BPH MUSCULOSKELETAL: History prior cervical spine surgery, stable NEUROLOGICAL:. Current L lachelle HEMATOLOGICAL: negative . SKIN: negative PSYCHIATRIC: Unremarkable. Notes insomnia can be a challenge, improved with TrazOdone All other review of systems found to be negative. PAST MEDICAL HISTORY: HTN Afib PAST SURGICAL HISTORY: C Spine surgery Tonsillectomy Eye surgery ALLERGIES: Please see below. MEDICATIONS: Please see below. DIET: Regular/thin liquids PHYSICAL EXAMINATION: VITAL SIGNS: Please see below. GENERAL: Patient is pleasant and cooperative with exam, Dysarthric speech noted and less emotional lability, but still cries easily when discussing disability issues. HEENT: mild left facial droop, widened left palpebral fissure, extraocular movements intact. Clear conjunctiva, no adenopathy or thyromegaly. Full cervical range of motion without tenderness or spasm. CARDIOVASCULAR: S2 S2 RRR LUNGS: Clear to auscultation bilaterally. No wheezes. No rhonchi. ABDOMEN: Soft, nontender, nondistended. Positive bowel sounds. Normal active bowel sounds, no organomegaly. NEUROLOGICAL: Alert and oriented times three. 4 Extremity Sensation grossly intact. Reflexes 3 + L, 2+ right bilateral biceps, triceps, brachial radialis, patellar, Achilles tendon jerks. No clonus. Slightly increased tone left upper extremity, able to forward flex to 120 degrees with less spastic posturing during MM testing, FROM RUE. EXTREMITIES:less tenderness left shoulder girdle anterior region, still slight with palpable tendon thickening and tenderness over lateral deltoid region 5 /5 right refund specialist, elbow flexion, elbow extension, knee extension, foot dorsiflexion, plantar flexion. 4/5 L refund specialist, pinch, biceps, triceps, 5-/5 quads, tibialis anterior. SKIN: Intact FUNCTIONAL STATUS AT DISCHARGE: MOD I for self care. Transfers bed to chair, toilet and commode, MOD I, requires verbal cues for increasing left awareness and pacing for safety. Working on fine motor coordination in the left hand. Ambulatory with straight cane. LABORATORY DATA: Please see below. IMAGIN12/29/2019 CT angiography of neck acute infarct right flores radiata, occluded extracranial right ICA at the origin, occluded left vertebral artery C2-3 with approximately 50% diameter stenosis mid basilar artery. 12/27/2019. MRI brain, multiple small punctate foci of acute infarcts, right frontal parietal and occipital lobes and deep white matter. Many in watershed zones. Normal flow void not identified in the intracranial right ICA, with concern for possible occlusion thrombus . ALLERGIES: See below. MEDICATIONS: See Below. DISCHARGE DISPOSITION: Home with who came in for family training, follow up with PMD, Neurology, Cardiology, speech and language therapy, Physical and occupational therapy. Advised to cease all alcohol intake. TIME SPENT: Chart Review, examination and documentation 60 minutes. This document is generated using speech recognition software which may result in grammatical, typographical and individual word errors. Vital Signs/I&O Vital Sign - Last 24 Hours 01/12/20 01/12/20 01/12/20 01/13/20 14:00 20:20 20:30 05:42 Temp 99.0 97.8 98.8 Pulse 64 72 72 60 Resp 18 18 18 B/P (MAP) 111/64 (80) 128/70 (89) 128/70 149/90 (109) Pulse Ox 98 95 94 O2 Delivery Room Air Room Air Room Air 01/13/20 01/13/20 09:10 09:11 Pulse 60 60 B/P (MAP) 149/90 149/90 I&O- Last 24 Hours up to 6 AM 01/13/20 06:00 Intake Total 1120 ml Balance 1120 ml Medications Medications Current Medications Medications (Trade) Dose Ordered Sig/Chano Route PRN Reason Start Time Stop Time Status Last Admin Dose Admin Acetaminophen (Tylenol Tab) 650 mg Q4HP PRN PO MILD PAIN (PS 1-4) 01/03/20 15:15 Amlodipine Besylate (Norvasc) 5 mg DAILY PO 01/04/20 09:00 01/13/20 09:10 Apixaban (Eliquis) 5 mg BID PO 01/03/20 21:00 01/13/20 09:10 Atorvastatin Calcium (Lipitor) 80 mg QHS PO 01/03/20 21:00 01/12/20 20:30 Diclofenac Epolamine (Flector 1.3%) 1 patch DAILY TOP 01/09/20 09:00 01/12/20 08:54 Diclofenac Epolamine (Flector 1.3%) 1 patch DAILYPRN PRN TOP pain 01/06/20 11:45 01/09/20 09:40 DC Docusate Sodium (Colace) 100 mg BID PO 01/03/20 21:00 01/13/20 09:11 Home Med (Med Rec Complete!) ASDIRECTED XX 01/03/20 16:30 01/03/20 16:44 DC Metoprolol Succinate (TopROL XL) 50 mg DAILY PO 01/04/20 09:00 01/03/20 17:11 DC Metoprolol Tartrate (Lopressor) 12.5 mg BID PO 01/03/20 21:00 01/05/20 09:53 DC 01/05/20 08:38 Metoprolol Tartrate (Lopressor) 25 mg BID PO 01/05/20 21:00 01/13/20 09:11 Miscellaneous (Unresolved Clarification Entry) SEE LABEL COMMENTS DAILY XX 01/10/20 09:00 01/10/20 11:27 DC Pantoprazole Sodium (Protonix) 40 mg DAILY PO 01/04/20 09:00 01/13/20 09:11 Polyethylene Glycol (Miralax) 1 pkt DAILY PRN PO CONSTIPATION 01/03/20 15:15 Rivaroxaban (Xarelto) 20 mg DAILY PO 01/04/20 09:00 01/03/20 17:10 DC Tamsulosin HCl (Flomax) 0.4 mg DAILY PO 01/04/20 09:00 01/03/20 17:10 DC Trazodone HCl (Desyrel) 25 mg QHS PO 01/03/20 21:00 01/12/20 20:29 Zolpidem Tartrate (Ambien) 10 mg QHS PO 01/03/20 21:00 01/03/20 17:10 DC Scheduled Amlodipine Besylate (Amlodipine Besylate) 5 Mg Tablet, 5 MG PO DAILY, (Reported) Apixaban (Eliquis) 5 Mg Tablet, 5 MG PO BID, (Reported) Atorvastatin Calcium (Atorvastatin Calcium) 80 Mg Tablet, 80 MG PO QHS, (Reported) Fluoxetine Hcl (Fluoxetine HCl) 10 Mg Capsule, 10 MG PO DAILY, (Reported) Metoprolol Tartrate (Metoprolol Tartrate) 25 Mg Tablet, 25 MG PO BID Pantoprazole Sodium (Pantoprazole Sodium) 40 Mg Tablet.dr, 40 MG PO DAILY, (Reported) Trazodone HCl (Trazodone HCl) 50 Mg Tablet, 25 MG PO QHS Scheduled PRN Polyethylene Glycol 3350 (Polyethylene Glycol 3350) 17 Gm Powd.pack, 1 PKT PO DAILY PRN for CONSTIPATION Allergies Coded Allergies: oxycodone (Verified Allergy, Unknown, 01/03/20) medical record NATHALY SALVADOR MD Jan 13, 2020 09:33
== END 2020-01-13 14:30 | disposition home or self-care (01) | DRG 57 ==
LOC: M PM&R 14:37
PROVIDERS: ADMIT Physical Medicine & Rehabilitation; ATTEND Physical Medicine & Rehabilitation
DX: I69.354 Hemiplegia and hemiparesis following cerebral infarction affecting left non-dominant side (principal); I10 Essential (primary) hypertension; I48.0 Paroxysmal atrial fibrillation; I69.392 Facial weakness following cerebral infarction; M79.18 Myalgia, other site; I69.322 Dysarthria following cerebral infarction; E78.5 Hyperlipidemia, unspecified; I69.391 Dysphagia following cerebral infarction; R13.10 Dysphagia, unspecified; Z87.891 Personal history of nicotine dependence; Z79.01 Long term (current) use of anticoagulants; Z79.82 Long term (current) use of aspirin; Z79.899 Other long term (current) drug therapy; Z88.5 Allergy status to narcotic agent; F10.10 Alcohol abuse, uncomplicated; F41.9 Anxiety disorder, unspecified